=== PATIENT | male | born 1990 | race Caucasian/White ===

== ENCOUNTER 2019-03-04 22:15 | Emergency (ER) | payer BC ==
[2019-03-04 22:24] VITALS: BP 145/77; PULSE 66; RESP 16; TEMP 98.4; O2SAT 99
--- NOTE | 2019-03-04 23:41 | ED PDOC ---
HPI: Chest Pain Time Seen by Provider: 03/04/19 22:28 Chief Complaint (Nursing): Chest Pain Chief Complaint (Provider): chest pain for 3 hours History Per: Patient History/Exam Limitations: no limitations Onset/Duration Of Symptoms: Hrs (3) Current Symptoms Are (Timing): Still Present Severity: Moderate Pain Scale Rating Of: 5 Quality: Pressure Associated Symptoms: denies: Nausea, Dyspnea, Diaphoresis, Syncope Exacerbating Factors: Movement, Deep Breathing Additional Complaint(s): Patient is a 28 year old male with PMHX of psoriasis who developed acute right sided chest pain. Pain worse with inspiration and movement. He denies trauma/fall or injury. No associated N/V/Diaphoresis. Patient started Cleocin and Codeine/APAP today as per dentist for dental caries. - Risk Factors PE Risk Factors: Neg: Extremity Immobilization/Fx, Decreased Mobilty /Activity, Recent Major Surgery, Recent Hospitalization, Active Cancer, Previous DVT, Previous PE, CHF, Venous Stasis, Estrogen Usage, , Post-, Recent Major Trauma TAD Risk Factors: Neg: Hypertension, Connective Tissue Disease, Marfan's Syndrome, Kamilla- Danlos Syndrome, Aortic Valve Disease, Active , Tumer's Syndrome, First Degree Relative With TAD, Sudden Onset Of Pain, Migration Of Pain, New Neurologic Symptoms Past Medical History Reviewed: Historical Data, Nursing Documentation, Vital Signs Vital Signs: Last Vital Signs Temp 98.4 F 03/04/19 22:22 Pulse 66 03/04/19 22:22 Resp 16 03/04/19 22:22 BP 145/77 03/04/19 22:22 Pulse Ox 99 03/04/19 22:22 - Medical History Other PMH: Psoriasis - Surgical History Surgical History: Cholecystectomy Other surgeries: Gastric Sleeve - Family History Family History: States: Unknown Family Hx - Social History Current smoker - smoking cessation education provided: No Alcohol: None Drugs: Denies - Home Medications Home Medications: Ambulatory Orders Medication Instructions Recorded Naproxen [Naprosyn] 500 mg PO Q12 #14 tab 03/05/19 - Allergies Allergies/Adverse Reactions: Allergies Allergy/AdvReac Type Severity Reaction Status Date / Time Penicillins Allergy RASH Verified 03/04/19 22:24 Review of Systems ROS Statement: Except As Marked, All Systems Reviewed And Found Negative Cardiovascular: Positive for: Chest Pain Physical Exam - Reviewed Nursing Documentation Reviewed: Yes Vital Signs Reviewed: Yes - Physical Exam Appears: Positive for: Uncomfortable Head Exam: Positive for: ATRAUMATIC, NORMOCEPHALIC Skin: Positive for: Normal Color, Warm, Dry, Rash (diffuse psoriatic skin lesions noted) Eye Exam: Positive for: Normal appearance, EOMI, PERRL ENT: Positive for: Normal ENT Inspection Neck: Positive for: Normal, Painless ROM, Supple Cardiovascular/Chest: Positive for: Regular Rate, Rhythm. Negative for: Chest Non Tender (chest tender jose right subcostal region and anterior chest wall 5/6 intercostal spaces in Mid clavicular line), Edema, JVD Respiratory: Positive for: Normal Breath Sounds Lymphatic: Positive for: Deferred Neurological/Psych: Positive for: Awake, Alert, Normal Tone - Laboratory Results Result Diagrams: 03/04/19 23:53 03/04/19 23:53 - ECG O2 Sat by Pulse Oximetry: 99 Medical Decision Making Medical Decision Makin28 year old male with reproducible chest pain Labs, EKG, Chest Xray and Trial of Toradol 1:15AM Patient reports improvement in symptoms Labs reviewed show no clinically significant abnormalities Chest Xray NAD Patient stable for discharge home Dx Costochondritis RX Naprosyn Disposition - Clinical Impression Clinical Impression: Atypical chest pain, Costochondritis - Disposition Disposition: Routine/Home Disposition Time: 01:17 Condition: STABLE Prescriptions: Naproxen [Naprosyn] 500 mg PO Q12 #14 tab Instructions: Chest Pain That Is Not Caused by the Heart (DC), Costochondritis Forms: [employer] ([place])
[2019-03-05 00:09] LABS: BASO % 0.4 % (0.0-2.0); EOS # 0.1 K/uL (0.0-0.7); EOS % 1.3 % (0.0-4.0); HEMOGLOBIN 13.3 g/dL (12.0-18.0); LYMPH # 2.6 K/uL (1.0-4.3); LYMPH % 32.6 % (20.0-40.0); MEAN CELL VOLUME 85.6 fl (80.0-94.0); MEAN CORPUSCULAR HEMOGLOBIN 28.6 pg (27.0-31.0); MEAN CORPUSCULAR HGB CONC 33.4 g/dL (33.0-37.0); MEAN PLATELET VOLUME 8.5 fl (7.2-11.7); MONO # 0.6 K/uL (0.0-0.8); MONO % 7.5 % (0.0-10.0); NEUT # 4.7 K/uL (1.8-7.0); NEUT % 58.2 % (50.0-75.0); NRBC % 0.1 % (0.0-0.0); RBC 4.64 Mil/uL (4.40-5.90); RED CELL DISTRIBUTION WIDTH 13.4 % (11.5-14.5); WHITE BLOOD COUNT 8.1 K/uL (4.8-10.8)
[2019-03-05 00:19] LABS: ALB/GLOB RATIO 1.3 (1.0-2.1); ALBUMIN 4.1 g/dL (3.5-5.0); ALT/SGPT 39 U/L (21-72); AST/SGOT 44 U/L (17-59); BLOOD UREA NITROGEN 21 mg/dl (9-20); GFR NON-AFRICAN AMERICAN > 60
[2019-03-05 00:36] LABS: URINE BILIRUBIN NEGATIVE (NEGATIVE); URINE BLOOD NEGATIVE (NEGATIVE); URINE CLARITY SLIGHTY-CLOUDY (Clear); URINE COLOR YELLOW (YELLOW); URINE GLUCOSE (UA) NEG (NEGATIVE); URINE LEUKOCYTE ESTERASE NEG Leu/uL (Negative); URINE PROTEIN NEGATIVE (NEGATIVE)
[2019-03-05 00:53] LABS: BARBITURATES, UR NEGATIVE (NEGATIVE); BENZODIAZEPINES, UR NEGATIVE (NEGATIVE); OPIATES, UR POSITIVE (NEGATIVE); PHENCYCLIDINE, UR NEGATIVE (NEGATIVE)
--- NOTE | 2019-03-05 08:25 | RAD ---
Date of service: 03/04/2019 HISTORY: chest pain COMPARISON: Chest radiographs 07/23/2010. TECHNIQUE: 1 view obtained. FINDINGS: LUNGS: No active pulmonary disease. Improved inspiratory volume. PLEURA: No significant pleural effusion identified, no pneumothorax apparent. CARDIOVASCULAR: No aortic atherosclerotic calcification present. Normal cardiac size. No pulmonary vascular congestion. OSSEOUS STRUCTURES: No significant abnormalities. VISUALIZED UPPER ABDOMEN: Normal. OTHER FINDINGS: None. IMPRESSION: No interval acute cardiopulmonary disease appreciated.
== END 2019-03-05 01:53 | disposition home or self-care (01) ==
LOC: H.ER 22:15
DX: R07.89 Other chest pain (principal); M94.0 Chondrocostal junction syndrome [Tietze]; L40.9 Psoriasis, unspecified; Z88.0 Allergy status to penicillin
CPT/HCPCS: 71045; 80053; 81003; 84484; 85025; 99283; G0480; J1885